=== PATIENT | female | born 1990 | race Caucasian/White ===

== ENCOUNTER 2016-04-14 14:48 | Emergency (ER) | payer OTHER ==
[~2016-04-14 14:48] MED LIST: DOCU100C PO; IBUP60TA PO; PERCOCET PO; VITAPRTA PO
[2016-04-14 17:04] LABS: BASO % 0.5 % (0.0-1.0); EOS # 0.2 K/mm3 (0.0-0.50); EOS % 2.3 % (0.0-3.0); LARGE UNSTAINED CELL # 0.1 K/mm3 (0.0-0.4); LARGE UNSTAINED CELL % 1.6 % (0.0-4.0); LYMPH # 1.7 K/mm3 (1.5-6.5); LYMPH % 21.6 % (24.0-44.0); MEAN CORPUSCULAR HEMOGLOBIN 31.9 pg (27.0-33.0); MEAN CORPUSCULAR HGB CONC 33.1 g/dl (32.0-36.5); MEAN CORPUSCULAR VOLUME 96.4 fl (80.0-96.0); MONO # 0.3 K/mm3 (0.0-0.8); MONO % 3.7 % (0.0-5.0); NEUTROPHILS # 5.4 K/mm3 (1.8-7.7); NEUTROPHILS % 70.3 % (36.0-66.0); PLATELET COUNT, AUTOMATED 239 k/mm3 (150-450); RED CELL DISTRIBUTION WIDTH 12.4 % (11.5-14.5); WHITE BLOOD COUNT 7.7 K/mm3 (4.0-10.0)
[2016-04-14 17:32] LABS: ALBUMIN 4.2 GM/DL (3.2-5.2); ALBUMIN/GLOBULIN RATIO 1.27 (1.00-1.93); ALKALINE PHOSPHATASE 60 U/L (45-117); ALT/SGPT 23 U/L (12-78); ANION GAP 7 MEQ/L (8-16); AST/SGOT 14 U/L (15-37); BILIRUBIN,TOTAL 0.5 MG/DL (0.2-1.0); BLOOD UREA NITROGEN 15 MG/DL (7-18); CALCIUM LEVEL 9.3 MG/DL (8.5-10.1); CARBON DIOXIDE LEVEL 28 MEQ/L (21-32); CHLORIDE LEVEL 105 MEQ/L (98-107); CREATININE FOR GFR 0.76 MG/DL (0.55-1.02); GLOMERULAR FILTRATION RATE > 60.0 (>60); GLUCOSE, FASTING 93 MG/DL (70-105); POTASSIUM SERUM 3.9 MEQ/L (3.5-5.1); SODIUM LEVEL 140 MEQ/L (136-145); TOTAL PROTEIN 7.5 GM/DL (6.4-8.2)
[2016-04-14 17:33] LABS: CONTROL LINE HCG INT CTR LINE PRESENT
[2016-04-14 17:45] LABS: CONTROL LINE INT CTR LINE PRESENT
--- NOTE | 2016-04-14 18:25 | EDDOCDS ---
Physician Documentation [facility] Name: Jennifer Barbosa Age: 25 yrs Sex: Female : 1990 Arrival Date: 04/14/2016 Time: 14:48 Bed PR Private MD: Estaurdo Lincoln A. Disposition: 04/14/16 17:55 Discharged to Home/Self Care. Impression: Contact with contaminated hypodermic needle - ACCIDENTAL NEEDLE STICK INJURY TO LEFT PALM. - Condition is Stable. - Discharge Instructions: Needle Stick Injury. - Work Release Form - 1 day, Medication Reconciliation, Local Pharmacy Hours form. - Follow up: Emergency Department; When: As needed; Reason: Worsening of conditions. Follow up: ; When: Call to arrange an appointment; Reason: Wound/Symptom Recheck, Recheck today's complaints, Continuance of care, To establish care. Follow up: Private Physician; When: 1 - 2 days; Reason: Wound/Symptom Recheck, Recheck today's complaints, Continuance of care. - Problem is new. - Symptoms are unchanged. - Notes: PLEASE CALLEMPLOYEE HEALTHTO FOLLOW UP FROM TODAY'S VISIT. ANY WORSENING SYMPTOMS, PLEASE RETURN TO THE ER. Historical: - Allergies: No known drug Allergies; - Home Meds: 1. Vitamin Oral tab 1 tab once daily - PMHx: preeclampsia; - PSHx: Laparoscopy; (December 18, 2014); - Social history: Smoking status: Patient states was never smoker of tobacco. No barriers to communication noted, The patient speaks fluent Khmer. - Family history: Not pertinent. - : The pt / caregiver states he / she is not on anticoagulants. Home medication list is obtained from the patient, [employer] import data. - Exposure Risk Screening:: None identified. - Tetanus status: less than 5 years. 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 8 in. (172.72 cm); Pain 0/10; 14:49 Body Mass Index 27.37 (81.65 kg, 172.72 cm) cmb MDM: 15:37 Financial registration complete. gjb 15:57 Consult Employee Health (-F, 7:30a-4p) or Nursing Feather Washer for source patient dt4 testing ordered. 15:57 Place PEP packet on chart ordered. dt4 15:58 CBC with Diff Ordered. EDMS 15:58 Complete Comphrensive Metabolic Ordered. EDMS 15:58 HCG,Serum Qualitative Ordered. EDMS 15:58 HIV EXPOSED(ONLY WITH PEP SET) Ordered. EDMS 15:58 Hepatitis B Surface Antibody Ordered. EDMS 15:58 Hepatitis B Surface Antigen Ordered. EDMS 16:03 [facility] [place] [facility] Payment Agreement was scanned into [employer] and attached to record. [email or web address] 16:21 HEPATITIS C ANTIBODY Ordered. EDMS 16:22 Consult Employee [employer] (-, 7:30a-4p) or Nursing Feather Washer for source patient jrd testing complete. Signatures: Dispatcher [employer] EDYolie Uriarte, RN RN kcs Alix Sarabia RN RN rs3 Erin Landers, PA-C PA-C dt4 Behzad Allen, LIBRARY PAGE LIBRARY PAGE jrd Amy Haley gjb Tessie Miner, Reg Reg [email or web address] The chart was reviewed and I authenticate all verbal orders and agree with the evaluation and treatment provided.Corrections: (The following items were deleted from the chart) 16:21 15:59 HEPATITIS C ANTIBODY+LAB ordered. EDMS EDMS Attachments: 16:03 [facility] Payment Agreement [email or web address] MTDD
--- NOTE | 2016-04-14 18:25 | EDDOCDS ---
Nurse's Notes [facility] Name: Jennifer Barbosa Age: 25 yrs Sex: Female : 1990 Arrival Date: 04/14/2016 Time: 14:48 Bed PR Private MD: Estuardo Lincoln A. Diagnosis: Contact with contaminated hypodermic needle-ACCIDENTAL NEEDLE STICK INJURY TO LEFT PALM Presentation: 04/14 14:55 Presenting complaint: Patient states: she was stuck with a dirty needle in the L&D OR - kcs happened at 1308. Struck in palm of left hand. Adult Sepsis Screening: The patient does not have new or worsening altered mentation. Patient's respiratory rate is less than 22. Systolic blood pressure is greater than 100. Patient has a qSOFA score of 0- Negative Sepsis Screen. Suicide/Homicide risk assessment- the patient denies having any suicidal and/or homicidal ideations and does not present with any other emotional, behavioral or mental health complaints. Status: Patient is not a elevator operator service or dependent. Transition of care: patient was not received from another setting of care. 14:55 Acuity: MARQUITA Level 4 kcs 14:55 Method Of Arrival: Walkin/Carried/Asstd kcs Triage Assessment: 14:57 General: Appears comfortable, well developed, well nourished, well groomed, Behavior is kcs cooperative, pleasant. Pain: Denies pain. HIV screening NA for this visit to have serum HIV done. Neurological: Level of Consciousness is awake, alert. Respiratory: Airway is patent Respiratory effort is even, unlabored, Respiratory pattern is regular, symmetrical. Derm: Skin is intact, is healthy with good turgor, Skin is dry, Skin is normal. 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 Vitamin Oral tab 1 tab once daily - PMHx: preeclampsia; - PSHx: Laparoscopy; (December 18, 2014); - Social history: Smoking status: Patient states was never smoker of tobacco. No barriers to communication noted, The patient speaks fluent Bahraini. - Family history: Not pertinent. - : The pt / caregiver states he / she is not on anticoagulants. Home medication list is obtained from the patient, [employer] import data. - Exposure Risk Screening:: None identified. - Tetanus status: less than 5 years. Screenin:20 Screening information is obtained from the patient. Fall risk: No risks identified. rs3 Assistance ADL's: requires no assistance with activities of daily living. Abuse/DV Screen: The patient / caregiver reports he/she is: not in a situation that causes fear, pain or injury. Nutritional screening: No deficits noted. Advance Directives: Currently, there is no health care proxy. home support is adequate. Assessment: 18:20 General: Appears in no apparent distress, Behavior is appropriate for age, cooperative. rs3 Pain: Denies pain. Awake, alert, oriented. Skin warm and dry. Moves all extremities. Bilateral breath sounds clear. Respirations unlabored. Abdomen soft, non-tender. No apparent distress. The patient / caregiver is instructed regarding the plan of care and ED course. Physical assessment to be completed by ROSEMARIE/JACINTO. Injury: 18:22 Injury Description: Needlestick. rs3 Vital Signs: 14:49 BP 132 / 65; Pulse 72; Resp 16; Temp 96.9; Pulse Ox 97% ; Weight 81.65 kg; Height 5 ft. cmb 8 in. (172.72 cm); Pain 0/10; 14:49 Body Mass Index 27.37 (81.65 kg, 172.72 cm) cmb Vitals: 14:49 Log In Time: April 14, 2016 at 14:48. cmb ED Course: 14:49 Patient visited by Diane Stahl. cmb 14:49 Estuardo Lincoln is Private Physician. cmb 14:49 Patient moved to Waiting cmb 14:50 Patient moved to Pre RCE cmb 14:56 Triage Initiated kcs 14:58 Patient moved to Triage 3 kcs 15:26 [facility] dt4 15:26 Andrés Escalante MD is Attending Physician. dt4 15:26 Patient visited by Erin Landers PA-C. dt4 16:00 Patient moved to PR jrd 16:03 [facility] Payment Agreement was scanned into [employer] and attached to record. [email or web address] 16:04 Patient visited by Odilia Johnston RN. mk4 16:35 Patient visited by Odilia Johnston RN. mk4 17:17 Patient visited by Odilia Johnston RN. mk4 17:55 Arash Wu is Referral Physician. dt4 17:55 Referral Physician role handed off by Arash Wu dt4 18:21 No IV's were initiated during this patient's visit. No procedures done that require rs3 assistance. 18:24 Patient has correct armband on for positive identification. rs3 Order Results: Lab Order: CBC with Diff; SPEC'M 04/14/16 16:44 Test: WHITE BLOOD COUNT; Value: 7.7; Range: 4.0-10.0; Units: K/mm3; Status: F Test: RED BLOOD COUNT; Value: 4.00; Range: 4.00-5.40; Units: M/mm3; Status: F Test: HEMOGLOBIN; Value: 12.8; Range: 12.0-16.0; Units: g/dl; Status: F Test: HEMATOCRIT; Value: 38.6; Range: 36.0-47.0; Units: %; Status: F Test: MEAN CORPUSCULAR VOLUME; Value: 96.4; Range: 80.0-96.0; Abnormal: Above high normal; Units: fl; Status: F Test: MEAN CORPUSCULAR HEMOGLOBIN; Value: 31.9; Range: 27.0-33.0; Units: pg; Status: F Test: MEAN CORPUSCULAR HGB CONC; Value: 33.1; Range: 32.0-36.5; Units: g/dl; Status: F Test: RED CELL DISTRIBUTION WIDTH; Value: 12.4; Range: 11.5-14.5; Units: %; Status: F Test: PLATELET COUNT, AUTOMATED; Value: 239; Range: 150-450; Units: k/mm3; Status: F Test: NEUTROPHILS %; Value: 70.3; Range: 36.0-66.0; Abnormal: Above high normal; Units: %; Status: F Test: LYMPH %; Value: 21.6; Range: 24.0-44.0; Abnormal: Below low normal; Units: %; Status: F Test: MONO %; Value: 3.7; Range: 0.0-5.0; Units: %; Status: F Test: EOS %; Value: 2.3; Range: 0.0-3.0; Units: %; Status: F Test: BASO %; Value: 0.5; Range: 0.0-1.0; Units: %; Status: F Test: LARGE UNSTAINED CELL %; Value: 1.6; Range: 0.0-4.0; Units: %; Status: F Test: NEUTROPHILS #; Value: 5.4; Range: 1.8-7.7; Units: K/mm3; Status: F Test: LYMPH #; Value: 1.7; Range: 1.5-6.5; Units: K/mm3; Status: F Test: MONO #; Value: 0.3; Range: 0.0-0.8; Units: K/mm3; Status: F Test: EOS #; Value: 0.2; Range: 0.0-0.50; Units: K/mm3; Status: F Test: BASO #; Value: 0.0; Range: 0.0-0.2; Units: K/mm3; Status: F Test: LARGE UNSTAINED CELL #; Value: 0.1; Range: 0.0-0.4; Units: K/mm3; Status: F Lab Order: Complete Comphrensive Metabolic; SPEC'M 04/14/16 16:44 Test: GLUCOSE, FASTING; Value: 93; Range: 70-105; Units: MG/DL; Status: F Test: BLOOD UREA NITROGEN; Value: 15; Range: 7-18; Units: MG/DL; Status: F Test: CREATININE FOR GFR; Value: 0.76; Range: 0.55-1.02; Units: MG/DL; Status: F Test: GLOMERULAR FILTRATION RATE; Value: > 60.0; Range: >60; Status: F Test: SODIUM LEVEL; Value: 140; Range: 136-145; Units: MEQ/L; Status: F Test: POTASSIUM SERUM; Value: 3.9; Range: 3.5-5.1; Units: MEQ/L; Status: F Test: CHLORIDE LEVEL; Value: 105; Range: 98-107; Units: MEQ/L; Status: F Test: CARBON DIOXIDE LEVEL; Value: 28; Range: 21-32; Units: MEQ/L; Status: F Test: ANION GAP; Value: 7; Range: 8-16; Abnormal: Below low normal; Units: MEQ/L; Status: F Test: CALCIUM LEVEL; Value: 9.3; Range: 8.5-10.1; Units: MG/DL; Status: F Test: AST/SGOT; Value: 14; Range: 15-37; Abnormal: Below low normal; Units: U/L; Status: F Test: ALT/SGPT; Value: 23; Range: 12-78; Units: U/L; Status: F Test: ALKALINE PHOSPHATASE; Value: 60; Range: 45-117; Units: U/L; Status: F Test: BILIRUBIN,TOTAL; Value: 0.5; Range: 0.2-1.0; Units: MG/DL; Status: F Test: TOTAL PROTEIN; Value: 7.5; Range: 6.4-8.2; Units: GM/DL; Status: F Test: ALBUMIN; Value: 4.2; Range: 3.2-5.2; Units: GM/DL; Status: F Test: ALBUMIN/GLOBULIN RATIO; Value: 1.27; Range: 1.00-1.93; Status: F Test Note: ; Units are mL/min/1.73 m2 Chronic Kidney Disease Staging per NKF: Stage I & II GFR >=60 Normal to Mildly Decreased Stage III GFR 30-59 Moderately Decreased Stage IV GFR 15-29 Severely Decreased Stage V GFR <15 Very Little GFR Left ESRD GFR <15 on DIRECTOR FOOD SAFETY Lab Order: HCG,Serum Qualitative; SPEC'M 04/14/16 16:44 Test: HCG, SERUM QUALITATIVE; Value: NEGATIVE; Range: NEGATIVE; Status: F Lab Order: HIV EXPOSED(ONLY WITH PEP SET); SPEC'M 04/14/16 16:44 Test: HIVEXPOSED0; Value: NEGATIVE; Range: NEGATIVE; Status: F Test: HIV EXPOSED PT 1; Value: NEGATIVE; Range: NEGATIVE; Status: F Test Note: ; This test was performed utilizing a immunochromatographic sandwich principle technique. Sensitivity of the assay is 100%. Specificity of the assay is 99.7%. Lab Order: Hepatitis B Surface Antibody; SPEC'M 04/14/16 16:44 Test: HEPATITIS B SURFACE ANTIBODY; Range: POSITIVE; Status: I Lab Order: Hepatitis B Surface Antigen; SPEC' 04/14/16 16:44 Test: HEPATITIS B SURFACE ANTIGEN; Range: NEGATIVE; Status: I Lab Order: HEPATITIS C ANTIBODY; SPEC'M 04/14/16 16:44 Test: HEPATITIS C VIRUS NAEEM INDEX; Range: <0.8; Units: INDEX; Status: I Outcome: 17:55 Discharge ordered by Provider. dt4 18:21 The following High Risk Discharge criteria are identified: None. Discharged to home rs3 ambulatory. Condition: stable. Discharge instructions given to patient, Instructed on discharge instructions, follow up and referral plans. medication usage, Demonstrated understanding of instructions, medications, Pt was receptive of discharge instructions/ teaching. No special radiology studies were completed. 18:21 Discharge Assessment: patient administered narcotics - no. The following High Risk rs3 Discharge criteria are identified: None. Property :Personal belongings accompany Pt. 18:24 Patient left the ED. rs3 Signatures: Yolie Tran, RN RN Alix Mckinley RN RN rs3 Diane Stahl Margaret, RN RN mk4 Erin Landers, PAMarvin PAAmeliaC dt4 Behzad Allen, OUMAR SHOE PULLER jrTessie Patino, Reg Reg ks16 MTDD
[2016-04-15 08:51] LABS: HEPATITIS B SURFACE ANTIBODY POSITIVE (POSITIVE)
--- NOTE | 2016-04-16 19:25 | EDDOCDS ---
Physician Documentation [facility] Name: Jennifer Barbosa Age: 25 yrs Sex: Female : 1990 Arrival Date: 04/14/2016 Time: 14:48 Bed PR Private MD: Estuardo Lincoln A. Disposition: 04/14/16 17:55 Discharged to Home/Self Care. Impression: Contact with contaminated hypodermic needle - ACCIDENTAL NEEDLE STICK INJURY TO LEFT PALM. - Condition is Stable. - Discharge Instructions: Needle Stick Injury. - Work Release Form - 1 day, Medication Reconciliation, Local Pharmacy Hours form. - Follow up: Emergency Department; When: As needed; Reason: Worsening of conditions. Follow up: ; When: Call to arrange an appointment; Reason: Wound/Symptom Recheck, Recheck today's complaints, Continuance of care, To establish care. Follow up: Private Physician; When: 1 - 2 days; Reason: Wound/Symptom Recheck, Recheck today's complaints, Continuance of care. - Problem is new. - Symptoms are unchanged. - Notes: PLEASE CALLEMPLOYEE HEALTHTO FOLLOW UP FROM TODAY'S VISIT. ANY WORSENING SYMPTOMS, PLEASE RETURN TO THE ER. Historical: - Allergies: No known drug Allergies; - Home Meds: 1. Vitamin Oral tab 1 tab once daily - PMHx: preeclampsia; - PSHx: Laparoscopy; (December 18, 2014); - Social history: Smoking status: Patient states was never smoker of tobacco. No barriers to communication noted, The patient speaks fluent Mohawk. - Family history: Not pertinent. - : The pt / caregiver states he / she is not on anticoagulants. Home medication list is obtained from the patient, [employer] import data. - Exposure Risk Screening:: None identified. - Tetanus status: less than 5 years. 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 8 in. (172.72 cm); Pain 0/10; 14:49 Body Mass Index 27.37 (81.65 kg, 172.72 cm) cmb MDM: 15:37 Financial registration complete. gjb 15:57 Consult Employee Health (M-F, 7:30a-4p) or Nursing Faculty Support Coordinator for source patient dt4 testing ordered. 15:57 Place PEP packet on chart ordered. dt4 15:58 CBC with Diff Ordered. EDMS 15:58 Complete Comphrensive Metabolic Ordered. EDMS 15:58 HCG,Serum Qualitative Ordered. EDMS 15:58 HIV EXPOSED(ONLY WITH PEP SET) Ordered. EDMS 15:58 Hepatitis B Surface Antibody Ordered. EDMS 15:58 Hepatitis B Surface Antigen Ordered. EDMS 16:03 [facility] Payment Agreement was scanned into [employer] and attached to record. [email or web address] 16:21 HEPATITIS C ANTIBODY Ordered. EDMS 16:22 Consult Employee Health (M-F, 7:30a-4p) or Nursing Faculty Support Coordinator for source patient jrd testing complete. 04/15 11:05 T-Sheet-- Draft Copy was scanned into [employer] and attached to record. gb 11:05 Other: PEP was scanned into [employer] and attached to record. gb Signatures: Dispatcher [employer] Yolie Hubbard, RN RN Aria Renee, Reg Reg gb Alix Sarabia RN RN rs3 Erin Landers, PA-David PA-C dt4 Behzad Allen, RANGE MANAGEMENT SPECIALIST RANGE MANAGEMENT SPECIALIST Amy Draper gjTessie Long, Reg Reg [email or web address] The chart was reviewed and I authenticate all verbal orders and agree with the evaluation and treatment provided.Corrections: (The following items were deleted from the chart) 04/14 16:21 15:59 HEPATITIS C ANTIBODY+LAB ordered. EDMS EDMS Attachments: 16:03 [facility] [place] Payment Agreement [email or web address] 04/15 11:05 T-Sheet-- Draft Copy gb Chart Complete MTDD
--- NOTE | 2016-04-16 19:25 | EDDOCDS ---
Nurse's Notes [facility] Name: Jennifer Barbosa Age: 25 yrs Sex: Female : 1990 Arrival Date: 04/14/2016 Time: 14:48 Bed PR Private MD: Estuardo Lincoln A. Diagnosis: Contact with contaminated hypodermic needle-ACCIDENTAL NEEDLE STICK INJURY TO LEFT PALM Presentation: 04/14 14:55 Presenting complaint: Patient states: she was stuck with a dirty needle in the L&D OR - kcs happened at 1308. Struck in palm of left hand. Adult Sepsis Screening: The patient does not have new or worsening altered mentation. Patient's respiratory rate is less than 22. Systolic blood pressure is greater than 100. Patient has a qSOFA score of 0- Negative Sepsis Screen. Suicide/Homicide risk assessment- the patient denies having any suicidal and/or homicidal ideations and does not present with any other emotional, behavioral or mental health complaints. 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 Transition of care: patient was not received from another setting of care. 14:55 Acuity: MARQUITA Level 4 kcs 14:55 Method Of Arrival: Walkin/Carried/Asstd kcs Triage Assessment: 14:57 General: Appears comfortable, well developed, well nourished, well groomed, Behavior is kcs cooperative, pleasant. Pain: Denies pain. HIV screening NA for this visit to have serum HIV done. Neurological: Level of Consciousness is awake, alert. Respiratory: Airway is patent Respiratory effort is even, unlabored, Respiratory pattern is regular, symmetrical. Derm: Skin is intact, is healthy with good turgor, Skin is dry, Skin is normal. 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 Vitamin Oral tab 1 tab once daily - PMHx: preeclampsia; - PSHx: Laparoscopy; (December 18, 2014); - Social history: Smoking status: Patient states was never smoker of tobacco. No barriers to communication noted, The patient speaks fluent French. - Family history: Not pertinent. - : The pt / caregiver states he / she is not on anticoagulants. Home medication list is obtained from the patient, [employer] import data. - Exposure Risk Screening:: None identified. - Tetanus status: less than 5 years. Screenin:20 Screening information is obtained from the patient. Fall risk: No risks identified. rs3 Assistance ADL's: requires no assistance with activities of daily living. Abuse/DV Screen: The patient / caregiver reports he/she is: not in a situation that causes fear, pain or injury. Nutritional screening: No deficits noted. Advance Directives: Currently, there is no health care proxy. home support is adequate. Assessment: 18:20 General: Appears in no apparent distress, Behavior is appropriate for age, cooperative. rs3 Pain: Denies pain. Awake, alert, oriented. Skin warm and dry. Moves all extremities. Bilateral breath sounds clear. Respirations unlabored. Abdomen soft, non-tender. No apparent distress. The patient / caregiver is instructed regarding the plan of care and ED course. Physical assessment to be completed by ROSEMARIE/JACINTO. Injury: 18:22 Injury Description: Needlestick. rs3 Vital Signs: 14:49 BP 132 / 65; Pulse 72; Resp 16; Temp 96.9; Pulse Ox 97% ; Weight 81.65 kg; Height 5 ft. cmb 8 in. (172.72 cm); Pain 0/10; 14:49 Body Mass Index 27.37 (81.65 kg, 172.72 cm) cmb Vitals: 14:49 Log In Time: April 14, 2016 at 14:48. cmb ED Course: 14:49 Patient visited by Diane Stahl. cmb 14:49 Estuardo Lincoln is Private Physician. cmb 14:49 Patient moved to Waiting cmb 14:50 Patient moved to Pre RCE cmb 14:56 Triage Initiated kcs 14:58 Patient moved to Triage 3 kcs 15:26 [facility]. dt4 15:26 Andrés Escalante MD is Attending Physician. dt4 15:26 Patient visited by Erin Landers PA-C. dt4 16:00 Patient moved to PR jrd 16:03 [facility] Payment Agreement was scanned into [employer] and attached to record. ks16 16:04 Patient visited by Odilia Johnston RN. mk4 16:35 Patient visited by Odilia Johnston RN. mk4 17:17 Patient visited by Odilia Johnston RN. mk4 17:55 Arash Wu is Referral Physician. dt4 17:55 Referral Physician role handed off by Arash Wu dt4 18:21 No IV's were initiated during this patient's visit. No procedures done that require rs3 assistance. 18:24 Patient has correct armband on for positive identification. rs3 04/15 11:05 T-Sheet-- Draft Copy was scanned into [employer]cer and attached to record. gb 11:05 Other: PEP was scanned into [employer] and attached to record. gb Order Results: Lab Order: CBC with Diff; SPEC'M 04/14/16 16:44 Test: WHITE BLOOD COUNT; Value: 7.7; Range: 4.0-10.0; Units: K/mm3; Status: F Test: RED BLOOD COUNT; Value: 4.00; Range: 4.00-5.40; Units: M/mm3; Status: F Test: HEMOGLOBIN; Value: 12.8; Range: 12.0-16.0; Units: g/dl; Status: F Test: HEMATOCRIT; Value: 38.6; Range: 36.0-47.0; Units: %; Status: F Test: MEAN CORPUSCULAR VOLUME; Value: 96.4; Range: 80.0-96.0; Abnormal: Above high normal; Units: fl; Status: F Test: MEAN CORPUSCULAR HEMOGLOBIN; Value: 31.9; Range: 27.0-33.0; Units: pg; Status: F Test: MEAN CORPUSCULAR HGB CONC; Value: 33.1; Range: 32.0-36.5; Units: g/dl; Status: F Test: RED CELL DISTRIBUTION WIDTH; Value: 12.4; Range: 11.5-14.5; Units: %; Status: F Test: PLATELET COUNT, AUTOMATED; Value: 239; Range: 150-450; Units: k/mm3; Status: F Test: NEUTROPHILS %; Value: 70.3; Range: 36.0-66.0; Abnormal: Above high normal; Units: %; Status: F Test: LYMPH %; Value: 21.6; Range: 24.0-44.0; Abnormal: Below low normal; Units: %; Status: F Test: MONO %; Value: 3.7; Range: 0.0-5.0; Units: %; Status: F Test: EOS %; Value: 2.3; Range: 0.0-3.0; Units: %; Status: F Test: BASO %; Value: 0.5; Range: 0.0-1.0; Units: %; Status: F Test: LARGE UNSTAINED CELL %; Value: 1.6; Range: 0.0-4.0; Units: %; Status: F Test: NEUTROPHILS #; Value: 5.4; Range: 1.8-7.7; Units: K/mm3; Status: F Test: LYMPH #; Value: 1.7; Range: 1.5-6.5; Units: K/mm3; Status: F Test: MONO #; Value: 0.3; Range: 0.0-0.8; Units: K/mm3; Status: F Test: EOS #; Value: 0.2; Range: 0.0-0.50; Units: K/mm3; Status: F Test: BASO #; Value: 0.0; Range: 0.0-0.2; Units: K/mm3; Status: F Test: LARGE UNSTAINED CELL #; Value: 0.1; Range: 0.0-0.4; Units: K/mm3; Status: F Lab Order: Complete Comphrensive Metabolic; SPEC'M 04/14/16 16:44 Test: GLUCOSE, FASTING; Value: 93; Range: 70-105; Units: MG/DL; Status: F Test: BLOOD UREA NITROGEN; Value: 15; Range: 7-18; Units: MG/DL; Status: F Test: CREATININE FOR GFR; Value: 0.76; Range: 0.55-1.02; Units: MG/DL; Status: F Test: GLOMERULAR FILTRATION RATE; Value: > 60.0; Range: >60; Status: F Test: SODIUM LEVEL; Value: 140; Range: 136-145; Units: MEQ/L; Status: F Test: POTASSIUM SERUM; Value: 3.9; Range: 3.5-5.1; Units: MEQ/L; Status: F Test: CHLORIDE LEVEL; Value: 105; Range: 98-107; Units: MEQ/L; Status: F Test: CARBON DIOXIDE LEVEL; Value: 28; Range: 21-32; Units: MEQ/L; Status: F Test: ANION GAP; Value: 7; Range: 8-16; Abnormal: Below low normal; Units: MEQ/L; Status: F Test: CALCIUM LEVEL; Value: 9.3; Range: 8.5-10.1; Units: MG/DL; Status: F Test: AST/SGOT; Value: 14; Range: 15-37; Abnormal: Below low normal; Units: U/L; Status: F Test: ALT/SGPT; Value: 23; Range: 12-78; Units: U/L; Status: F Test: ALKALINE PHOSPHATASE; Value: 60; Range: 45-117; Units: U/L; Status: F Test: BILIRUBIN,TOTAL; Value: 0.5; Range: 0.2-1.0; Units: MG/DL; Status: F Test: TOTAL PROTEIN; Value: 7.5; Range: 6.4-8.2; Units: GM/DL; Status: F Test: ALBUMIN; Value: 4.2; Range: 3.2-5.2; Units: GM/DL; Status: F Test: ALBUMIN/GLOBULIN RATIO; Value: 1.27; Range: 1.00-1.93; Status: F Test Note: ; Units are mL/min/1.73 m2 Chronic Kidney Disease Staging per NKF: Stage I & II GFR >=60 Normal to Mildly Decreased Stage III GFR 30-59 Moderately Decreased Stage IV GFR 15-29 Severely Decreased Stage V GFR <15 Very Little GFR Left ESRD GFR <15 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 Sensitivity of the assay is 100%. Specificity of the assay is 99.7%. Lab Order: Hepatitis B Surface Antibody; SPEC'M 04/14/16 16:44 Test: HEPATITIS B SURFACE ANTIBODY; Value: POSITIVE; Range: POSITIVE; Status: F Lab Order: Hepatitis B Surface Antigen; SPEC'M 04/14/16 16:44 Test: HEPATITIS B SURFACE ANTIGEN; Value: NEGATIVE; Range: NEGATIVE; Status: F Lab Order: HEPATITIS C ANTIBODY; SPEC'M 04/14/16 16:44 Test: HEPATITIS C VIRUS NAEEM INDEX; Value: < 0.0; Range: <0.8; Units: INDEX; Status: F Outcome: 04/14 17:55 Discharge ordered by Provider. dt4 18:21 The following High Risk Discharge criteria are identified: None. Discharged to home rs3 ambulatory. Condition: stable. Discharge instructions given to patient, Instructed on discharge instructions, follow up and referral plans. medication usage, Demonstrated understanding of instructions, medications, Pt was receptive of discharge instructions/ teaching. No special radiology studies were completed. 18:21 Discharge Assessment: patient administered narcotics - no. The following High Risk rs3 Discharge criteria are identified: None. Property :Personal belongings accompany Pt. 18:24 Patient left the ED. rs3 Signatures: Yolie Tran, RN RN [facility] Aria Lazar, Reg Reg gb Alix Sarabia RN RN rs3 Diane Stahl Margaret RN RN mk4 Erin Landers PA-C PA-C dt4 Behzad Allen, OUMAR FISHERY BIOLOGIST Tessie Beebe, Reg Reg ks16 Chart Complete MTDD
--- NOTE | 2016-04-16 19:25 | EDDOCDS ---
Physician Documentation [facility] Name: Jennifer Barbosa Age: 25 yrs Sex: Female : 1990 Arrival Date: 04/14/2016 Time: 14:48 Bed PR Private MD: Estuardo Lincoln A. Disposition: 04/14/16 17:55 Discharged to Home/Self Care. Impression: Contact with contaminated hypodermic needle - ACCIDENTAL NEEDLE STICK INJURY TO LEFT PALM. - Condition is Stable. - Discharge Instructions: Needle Stick Injury. - Work Release Form - 1 day, Medication Reconciliation, Local Pharmacy Hours form. - Follow up: Emergency Department; When: As needed; Reason: Worsening of conditions. Follow up: ; When: Call to arrange an appointment; Reason: Wound/Symptom Recheck, Recheck today's complaints, Continuance of care, To establish care. Follow up: Private Physician; When: 1 - 2 days; Reason: Wound/Symptom Recheck, Recheck today's complaints, Continuance of care. - Problem is new. - Symptoms are unchanged. - Notes: [facility]'S [facility]IS[facility]. ANY WORSENING SYMPTOMS, PLEASE RETURN TO THE ER. Historical: - Allergies: No known drug Allergies; - Home Meds: 1. Vitamin Oral tab 1 tab once daily - PMHx: preeclampsia; - PSHx: Laparoscopy; (December 18, 2014); - Social history: Smoking status: Patient states was never smoker of tobacco. No barriers to communication noted, The patient speaks fluent Polish. - Family history: Not pertinent. - : The pt / caregiver states he / she is not on anticoagulants. Home medication list is obtained from the patient, [employer] import data. - Exposure Risk Screening:: None identified. - Tetanus status: less than 5 years. 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 8 in. (172.72 cm); Pain 0/10; 14:49 Body Mass Index 27.37 (81.65 kg, 172.72 cm) cmb MDM: 15:37 Financial registration complete. gjb 15:57 Consult Employee Health (M-F, 7:30a-4p) or Nursing Insulation Worker Apprentice for source patient dt4 testing ordered. 15:57 Place PEP packet on chart ordered. dt4 15:58 CBC with Diff Ordered. EDMS 15:58 Complete Comphrensive Metabolic Ordered. EDMS 15:58 HCG,Serum Qualitative Ordered. EDMS 15:58 HIV EXPOSED(ONLY WITH PEP SET) Ordered. EDMS 15:58 Hepatitis B Surface Antibody Ordered. EDMS 15:58 Hepatitis B Surface Antigen Ordered. EDMS 16:03 [facility] Payment Agreement was scanned into [employer] and attached to record. ks16 16:21 HEPATITIS C ANTIBODY Ordered. EDMS 16:22 Consult Employee Health (M-F, 7:30a-4p) or Nursing Insulation Worker Apprentice for source patient jrd testing complete. 04/15 11:05 T-Sheet-- Draft Copy was scanned into [employer] and attached to record. gb 11:05 Other: PEP was scanned into [employer] and attached to record. gb Signatures: Dispatcher [employer] Yolie Hubbard, RN RN Aria Renee, Reg Reg gb Alix Sarabia RN RN rs3 Erin Landers, PA-David PA-C dt4 Behzad Allen, PIPE FITTER GAS PIPE PIPE FITTER GAS PIPE Amy Draper gjTessie Long, Reg Reg ks16 The chart was reviewed and I authenticate all verbal orders and agree with the evaluation and treatment provided.Corrections: (The following items were deleted from the chart) 04/14 16:21 15:59 HEPATITIS C ANTIBODY+LAB ordered. EDMS EDMS Attachments: 16:03 [facility] Payment Agreement [email or web address] 04/15 11:05 T-Sheet-- Draft Copy gb Chart Complete MTDD
== END 2016-04-14 18:24 | disposition home or self-care (01) ==
LOC: M ED 14:48
DX: Z77.21 Contact with and (suspected) exposure to potentially hazardous body fluids (principal); W46.1XXA Contact with contaminated hypodermic needle, initial encounter; Y92.234 Operating room of hospital as the place of occurrence of the external cause; Y93.89 Activity, other specified; Y99.0 Civilian activity done for income or pay

== ENCOUNTER → 2016-08-12 | Outpatient (CLI) | payer OTHER | LOC: M LAB 14:25 | PROVIDERS: ATTEND Advanced Practice Midwife | DX: O20.0 Threatened abortion (principal) ==

== ENCOUNTER → 2016-08-14 | Outpatient (CLI) | payer OTHER | LOC: M LAB 14:38 | PROVIDERS: ATTEND Advanced Practice Midwife | DX: O20.0 Threatened abortion (principal) ==

== ENCOUNTER → 2016-08-21 | Outpatient (CLI) | payer OTHER | LOC: M LAB 13:02 | PROVIDERS: ATTEND Advanced Practice Midwife | DX: O20.0 Threatened abortion (principal) ==

== ENCOUNTER → 2016-09-16 | Outpatient (CLI) | payer OTHER ==
[2016-09-16 13:04] LABS: BASO % 0.4 % (0.0-1.0); EOS # 0.2 K/mm3 (0.0-0.50); EOS % 1.6 % (0.0-3.0); LARGE UNSTAINED CELL # 0.1 K/mm3 (0.0-0.4); LARGE UNSTAINED CELL % 0.7 % (0.0-4.0); LYMPH # 1.4 K/mm3 (1.5-6.5); LYMPH % 14.2 % (24.0-44.0); MEAN CORPUSCULAR HEMOGLOBIN 32.9 pg (27.0-33.0); MEAN CORPUSCULAR HGB CONC 33.8 g/dl (32.0-36.5); MEAN CORPUSCULAR VOLUME 97.4 fl (80.0-96.0); MONO # 0.3 K/mm3 (0.0-0.8); MONO % 3.5 % (0.0-5.0); NEUTROPHILS # 7.8 K/mm3 (1.8-7.7); NEUTROPHILS % 79.8 % (36.0-66.0); PLATELET COUNT, AUTOMATED 218 k/mm3 (150-450); RED CELL DISTRIBUTION WIDTH 12.4 % (11.5-14.5); WHITE BLOOD COUNT 9.7 K/mm3 (4.0-10.0)
[2016-09-16 13:41] LABS: HBsAg Prenatal NEGATIVE (NEGATIVE)
== END ==
LOC: M SMT 09:57
PROVIDERS: ATTEND Advanced Practice Midwife
DX: Z36 Encounter for antenatal screening of mother (principal)

== ENCOUNTER → 2016-09-21 | Outpatient (CLI) | payer OTHER ==
[2016-09-21 14:20] LABS: MEAN CORPUSCULAR HEMOGLOBIN 33.1 pg (27.0-33.0); MEAN CORPUSCULAR HGB CONC 34.1 g/dl (32.0-36.5); RED CELL DISTRIBUTION WIDTH 12.4 % (11.5-14.5); WHITE BLOOD COUNT 9.6 K/mm3 (4.0-10.0)
[2016-09-21 14:49] LABS: ALBUMIN 3.7 GM/DL (3.2-5.2); ALBUMIN/GLOBULIN RATIO 1.06 (1.00-1.93); ALKALINE PHOSPHATASE 56 U/L (45-117); ALT/SGPT 14 U/L (12-78); ANION GAP 7 MEQ/L (8-16); AST/SGOT 11 U/L (15-37); BILIRUBIN,TOTAL 0.3 MG/DL (0.2-1.0); BLOOD UREA NITROGEN 8 MG/DL (7-18); CALCIUM LEVEL 8.7 MG/DL (8.5-10.1); CARBON DIOXIDE LEVEL 26 MEQ/L (21-32); CHLORIDE LEVEL 105 MEQ/L (98-107); CREATININE FOR GFR 0.51 MG/DL (0.55-1.02); GLOMERULAR FILTRATION RATE > 60.0 (>60); GLUCOSE, FASTING 74 MG/DL (70-105); POTASSIUM SERUM 3.7 MEQ/L (3.5-5.1); SODIUM LEVEL 138 MEQ/L (136-145); TOTAL PROTEIN 7.2 GM/DL (6.4-8.2); URIC ACID 2.7 MG/DL (2.6-6.0)
[2016-09-21 15:37] LABS: CREATININE CLEARANCE, URINE 202.7 ML/MIN (75-115); CREATININE, SERUM 0.5 MG/DL (0.6-1.0)
== END ==
LOC: M SMT 13:10
PROVIDERS: ATTEND Advanced Practice Midwife
DX: O34.211 Maternal care for low transverse scar from previous cesarean delivery (principal)

== ENCOUNTER → 2016-11-16 | Outpatient (CLI) | payer OTHER ==
[~2016-11-16] MED LIST changes: -DOCU100C PO; +DOCU100C16 PO
--- NOTE | 2016-11-16 13:43 | REP ---
Obstetric ultrasound for anatomy: There is a single intrauterine gestation in a breech presentation. There is motion and cardiac activity. The heart rate is 141 beats per minute. The placenta is anterior and extends into the lower uterine segment across the internal cervical os indicating a direct placenta previa. 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 The patient reportedly has had uterine surgery. With endovaginal imaging, there appears to be vasa previa as well as placenta previa. Trans vaginally the cervix on the right measures 4.5 cm in length and the cervix on the left measures 3.7 cm length. Several venous lakes are noted in the of placenta. Subjectively the amniotic fluid volume is normal. The maternal adnexa and normal cul-de-sac are unremarkable. By the ultrasound today gestational age is 18 weeks 4 days with an ELAINE of 04/15/2017. By LMP gestational age is 18 weeks 1 day. weight is 252 grams (0 pounds, 8 ounces). This is the 52nd percentile for 18 weeks 4 days and 70th percentile for 18 weeks 1 day. The following anatomic structures are identified and are unremarkable: Cranium, choroid plexus, cavum septum pellucidum, cerebellum, facial profile, lungs, four-chamber heart, cardiac right and left ventricular outflow tracts, diaphragm, stomach, cord insertion, three-vessel cord, kidneys, bladder and upper lower extremities. The spine cannot be optimally demonstrated because of position. A followup study dedicated to the spine might be considered. Otherwise, there are no anomalies. Impression: Placenta previa and vasa previa. There are two cervixes. The patient has history of uterine surgery. Signed by Lawrence Galarza MD 11/16/2016 01:35 P
== END ==
LOC: M SMT 10:59
PROVIDERS: ATTEND Advanced Practice Midwife
DX: Z36 Encounter for antenatal screening of mother (principal); O32.1XX1 Maternal care for breech presentation, fetus 1; Z3A.18 18 weeks gestation of pregnancy

== ENCOUNTER → 2017-02-16 | Outpatient (CLI) | payer OTHER ==
--- NOTE | 2017-02-16 14:13 | REP ---
Clinical: Growth evaluation. Comparison: None . Findings: Examination demonstrates a single live intrauterine in transverse (head towards maternal left) presentation. motion is identified by technologist. Placenta is noted anteriorly and grade one without evidence for placenta previa or abruption. Amniotic fluid volume is normal. Cervix measures 3.9 cm in length and appears closed. No evidence for nuchal cord. Gestational age by LMP 31 weeks 2 days with ELAINE 04/18/2017 . Gestational age by current measurements 31 weeks 5 days with ELAINE 04/15/2017 . FHR equals 147 beats per minute. BPD 8.0 cm 32 weeks 2 days HC 29.4 cm 32 weeks 3 days AC 29.3 cm 33 weeks 2 days FL 6.0 cm 31 weeks 3 days HL 5.6 cm 32 weeks 2 days HC/AC ratio 1.01 Estimated weight 1994 grams ( 69th percentile). Amniotic fluid index equals 11.2 cm (8.7 - 23.9). Umbilical cord SD ratio equals 3.33 (2.50 - 3.5). Impression: Single live advanced gestation in transverse lie demonstrating appropriate interval growth. No gross abnormalities are identified. Signed by Efra Rivera MD 02/16/2017 02:05 P
== END ==
LOC: M SMT 13:03
PROVIDERS: ATTEND Advanced Practice Midwife
DX: O34.211 Maternal care for low transverse scar from previous cesarean delivery (principal); O34.00 Maternal care for unspecified congenital malformation of uterus, unspecified trimester

== ENCOUNTER → 2017-03-09 | Outpatient (CLI) | payer OTHER ==
--- NOTE | 2017-03-09 21:25 | REP ---
LIMITED OBSTETRICAL ULTRASOUND: CLINICAL: Growth evaluation. History of bicornuate uterus. COMPARISON: 02/16/2017 FINDINGS: Ultrasound examination demonstrates a single live advanced gestation in cephalic presentation. motion was identified by technologist. Placenta is noted anteriorly and grade 1 without evidence for placenta previa or abruption. Amniotic fluid volume is within normal limits. No evidence for nuchal cord. Gestational age by LMP 34 weeks 2 days with estimated date of delivery 04/18/2017. Gestational age by current measurements 34 weeks 6 days with estimated date of delivery 04/14/2017. FHR 141 beats per minute. BPD 8.8 cm = 35 weeks 3 days HC 32.3 cm = 36 weeks 3 days AC 31.8 cm = 35 weeks 5 days FL 6.6 cm = 34 weeks 1 day HC/AC ratio 1.01. Estimated weight 2658 grams, 67th percentile. Amniotic fluid index equals 11.7 cm (8.0 - 24.8). Umbilical cord S/D ratio equals 2.87 (2.00 - 3.00). IMPRESSION: Single live advanced gestation in cephalic presentation demonstrating appropriate interval growth. Amniotic fluid volume is within normal limits. Signed by Efra Rivera MD 03/10/2017 07:29 A
== END ==
LOC: M SMT 14:02
PROVIDERS: ATTEND Advanced Practice Midwife
DX: Z36.2 Encounter for other antenatal screening follow-up (principal)

== ENCOUNTER → 2017-03-22 | Outpatient (REF) | payer OTHER | LOC: M LAB REF 17:48 | PROVIDERS: ATTEND Obstetrics & Gynecology | DX: Z34.83 Encounter for supervision of other normal pregnancy, third trimester (principal) ==

== ENCOUNTER → 2017-03-28 | Outpatient (CLI) | payer OTHER ==
--- NOTE | 2017-03-28 12:26 | REP ---
Clinical: Growth evaluation. Comparison: 03/09/2017 . Findings: Examination demonstrates a single live intrauterine in transverse (head to maternal right) presentation. motion is identified by technologist. Placenta is noted anteriorly and grade one without evidence for placenta previa or abruption. Amniotic fluid volume is normal. Cervix appears closed. No evidence for nuchal cord. Gestational age by LMP 7 minutes 37 weeks 0 days with ELAINE 04/18/2017 . Gestational age by current measurements 36 weeks 6 days with ELAINE 04/19/2017 . FHR equals 128 beats per minute. BPD 9.1 cm 36 weeks 6 days HC 33.6 cm 38 weeks 4 days AC 33.4 cm 37 weeks 2 days FL 7.1 cm 36 week 3 days HC/AC ratio 1.01 Estimated weight 3145 grams ( 57th percentile). Amniotic fluid index: 10.1 cm (7.5 - 24.4). Umbilical cord SD ratio: 2.50 (1.60 - 2.60). Impression: Single live advanced gestation in transverse lie demonstrating appropriate interval growth. No gross abnormalities are identified. Amniotic fluid volume is within normal limits. Estimated weight normal. Signed by Efra Rivera MD 03/28/2017 12:18 P
== END ==
LOC: M SMT 11:11
PROVIDERS: ATTEND Advanced Practice Midwife
DX: O34.211 Maternal care for low transverse scar from previous cesarean delivery (principal); O34.00 Maternal care for unspecified congenital malformation of uterus, unspecified trimester; Z3A.36 36 weeks gestation of pregnancy

== ENCOUNTER → 2019-01-14 | Outpatient (CLI) | payer OTHER ==
[~2019-01-14] MED LIST changes: +COLA100C5 PO; +IBUP-1114 PO; +IBUP600T42 PO; -IBUP60TA PO; +OXYC1TAB23 PO; +SIME80TA PO
== END ==
LOC: M SMT 07:52
PROVIDERS: ATTEND Advanced Practice Midwife
DX: O20.0 Threatened abortion (principal); Z3A.00 Weeks of gestation of pregnancy not specified

== ENCOUNTER → 2019-01-16 | Outpatient (CLI) | payer OTHER | LOC: M LAB 14:26 | PROVIDERS: ATTEND Advanced Practice Midwife | DX: O20.0 Threatened abortion (principal); Z3A.00 Weeks of gestation of pregnancy not specified ==

== ENCOUNTER → 2019-01-25 | Outpatient (REF) | payer OTHER | LOC: M LAB REF 17:41 | PROVIDERS: ATTEND Advanced Practice Midwife | DX: Z12.4 Encounter for screening for malignant neoplasm of cervix (principal) ==

== ENCOUNTER → 2019-02-11 | Outpatient (REF) | payer OTHER ==
[2019-02-11 15:51] LABS: BASO # 0.1 10^3/uL (0.0-0.2); BASO % 0.7 % (0.0-1.0); EOS # 0.2 10^3/uL (0.0-0.5); EOS % 1.8 % (0.0-3.0); HEMOGLOBIN 10.9 g/dl (12.0-15.5); LYMPH # 1.3 10^3/uL (1.5-5.0); LYMPH % 15.1 % (24.0-44.0); MEAN CORPUSCULAR HEMOGLOBIN 26.1 pg (27.0-33.0); MEAN CORPUSCULAR HGB CONC 30.3 g/dl (32.0-36.5); MEAN CORPUSCULAR VOLUME 86.1 fl (80.0-96.0); MONO # 0.5 10^3/uL (0.0-0.8); MONO % 5.3 % (0.0-5.0); NEUTROPHILS # 6.5 10^3/uL (1.5-8.5); NEUTROPHILS % 76.6 % (36.0-66.0); PLATELET COUNT, AUTOMATED 254 10^3/uL (150-450); RED BLOOD COUNT 4.18 10^6/uL (4.00-5.40); WHITE BLOOD COUNT 8.5 10^3/uL (4.0-10.0)
[2019-02-11 15:58] LABS: ALT/SGPT 16 U/L (12-78); BILIRUBIN,TOTAL 0.6 MG/DL (0.2-1.0); CREATININE FOR GFR 0.62 MG/DL (0.55-1.30); GLOMERULAR FILTRATION RATE > 60.0 (>60); LDH LACTATE DEHYDROGENASE 134 U/L (84-246); URIC ACID 2.6 MG/DL (2.6-6.0)
[2019-02-11 16:20] LABS: TOTAL PROTEIN,RANDOM URINE 14.6 MG/DL (0.0-12.0)
[2019-02-11 17:39] LABS: CHLAMYDIA DNA AMPLIFICATION NEGATIVE (NEGATIVE); GC DNA AMPLIFICATION NEGATIVE (NEGATIVE)
[2019-02-11 19:50] LABS: RUBELLA IgG QUALITATIVE IMMUNE (IMMUNE)
[2019-02-13 12:15] LABS: HIV 1&2 SCREEN CENTAUR NEGATIVE (NEGATIVE)
== END ==
LOC: M LABDRAW1 11:55
PROVIDERS: ATTEND Advanced Practice Midwife
DX: Z34.81 Encounter for supervision of other normal pregnancy, first trimester (principal); Z3A.00 Weeks of gestation of pregnancy not specified

== ENCOUNTER 2019-03-14 14:53 | Day surgery (SDC) | payer OTHER ==
[~2019-03-14] VITALS: Ht 172.7 cm; Wt 80.3 kg
[2019-03-14] MEDS: LR 1,000 ML IV SCH ×2 (06:28→23:58)
[2019-03-14] MEDS ORDERED: FERR32TA PO (15:07)
[2019-03-14 15:27] LABS: BASO # 0.1 10^3/uL (0.0-0.2); BASO % 0.5 % (0.0-1.0); EOS # 0.2 10^3/uL (0.0-0.5); EOS % 1.4 % (0.0-3.0); HEMATOCRIT 36.9 % (36.0-47.0); HEMOGLOBIN 11.5 g/dl (12.0-15.5); LYMPH # 1.2 10^3/uL (1.5-5.0); LYMPH % 10.4 % (24.0-44.0); MEAN CORPUSCULAR HEMOGLOBIN 28.3 pg (27.0-33.0); MEAN CORPUSCULAR HGB CONC 31.2 g/dl (32.0-36.5); MEAN CORPUSCULAR VOLUME 90.7 fl (80.0-96.0); MONO # 0.6 10^3/uL (0.0-0.8); MONO % 4.9 % (0.0-5.0); NEUTROPHILS # 9.5 10^3/uL (1.5-8.5); PLATELET COUNT, AUTOMATED 210 10^3/uL (150-450); RED BLOOD COUNT 4.07 10^6/uL (4.00-5.40); WHITE BLOOD COUNT 11.5 10^3/uL (4.0-10.0)
[2019-03-14 16:13] LABS: ALBUMIN 3.3 GM/DL (3.2-5.2); ALT/SGPT 14 U/L (12-78); BILIRUBIN,DIRECT 0.1 MG/DL (0.0-0.2); BILIRUBIN,TOTAL 0.3 MG/DL (0.2-1.0); BLOOD UREA NITROGEN 5 MG/DL (7-18); CARBON DIOXIDE LEVEL 24 MEQ/L (21-32); CHLORIDE LEVEL 106 MEQ/L (98-107); CREATININE FOR GFR 0.53 MG/DL (0.55-1.30); GLOMERULAR FILTRATION RATE > 60.0 (>60); GLUCOSE, FASTING 71 MG/DL (70-100); HCG, SERUM QUANTITATIVE 44721 MIU/ML; LIPASE 118 U/L (73-393); POTASSIUM SERUM 3.5 MEQ/L (3.5-5.1); SODIUM LEVEL 141 MEQ/L (136-145)
[2019-03-14] MEDS ORDERED: ACETAMINOPHEN 500 MG TAB PO ONE (17:30)
--- NOTE | 2019-03-14 17:52 | REP ---
REASON: Pelvic pain. Multiple ultrasonographic images of the gravid uterus show a single living intrauterine gestation in variable position. Doppler interrogation of the heart shows a heart rate of 158 beats per minute. The placenta is fundal and not low lying. The subjective aminotic fluid volume is within normal limits. Evaluation of the maternal adnexal spaces showed a complex cystic structure arising from the right ovary measuring 2.7 x 1.9 x 2.6 cm. IMPRESSION:Early OB ultrasound as described above. The examination was ordered and performed in a limited fashion. There is a complex cyst in the right ovary as described above possibly representing a hemorrhagic corpus luteum cyst. This should be correlated clinically with appropriate followup. Electronically Signed by Trenton Powell DO 03/14/2019 05:56 P
--- NOTE | 2019-03-14 19:35 | REPVR ---
PROCEDURE INFORMATION: Exam: MR Abdomen Without Contrast Exam date and time: 03/14/2019 5:29 PM Age: 28 years old Clinical history: Abdominal pain; Localized; Right lower quadrant (rlq); Patient HX: 14 wks , R/O appendicitis; Additional info: Rlq pain, RO appendicitis TECHNIQUE: Imaging protocol: MR of the abdomen without contrast. COMPARISON: No relevant prior studies available. FINDINGS: Liver: No mass. Gallbladder and bile ducts: Unremarkable. No stones. No ductal dilation. Pancreas: Unremarkable. No ductal dilation. Spleen: Unremarkable. No splenomegaly. Adrenals: Unremarkable. No mass. Kidneys and ureters: Unremarkable. No solid mass. No hydronephrosis. Stomach and bowel: Unremarkable. Appendix: The appendix demonstrates diffuse distention measuring 7.5-8 mm associated with small amount of fluid in the right lower quadrant periappendiceal region,, findings consistent with acute appendicitis although secondary considerations would include rupture versus in the nearby right ovary which is somewhat laterally displaced. No abscess demonstrated. Intraperitoneal space: See Appendix Finding. Arteries: No abdominal aortic aneurysm. Reproductive: Note is made of a gravid uterus. Several follicles demonstrated in the right ovary. Bones/joints: Unremarkable. Soft tissues: Unremarkable. IMPRESSION: Findings favoring acute appendicitis although ruptured ovarian right cysts could produce similar findings. Electronically signed by: Sina Hedrick On 03/14/2019 19:34:26 PM
[2019-03-14] MEDS ORDERED: NS 1,000 ML IV ONE ×2 (20:15→22:45)
[2019-03-14] MEDS ORDERED: PIPERACILLIN/TAZOBACTAM SOD 3.375 GM in D5W MINI-BAG PLUS 50 ML IV ONE (20:45)
[2019-03-14] MEDS ORDERED: PREN1TAB15 PO (21:30)
[2019-03-15] VITALS (7 sets, daily range): BP systolic 105–121; BP diastolic 49–67
[2019-03-15] MEDS ORDERED: KETOROLAC 60 MG/2 ML VIAL (J1885) As Ordered ONE (00:31)
[2019-03-15] MEDS ORDERED: dexameTHASONE 4 MG/ML 1ML VIAL (J1100) As Ordered ONE (00:31)
[2019-03-15] MEDS ORDERED: ONDANSETRON 4MG/2ML VIAL (J2405) As Ordered ONE (00:31)
[2019-03-15] MEDS ORDERED: fentaNYL 250 MCG/5 ML INJECTION (J3010) As Ordered ONE (00:31)
[2019-03-15] MEDS ORDERED: LIDOCAINE 2% INJ 100 MG/5 ML SDV (FOR ANES.) As Ordered ONE (00:31)
[2019-03-15] MEDS ORDERED: SUGAMMADEX SODIUM 500 MG/5 ML VIAL (BRIDION) As Ordered ONE (00:31)
[2019-03-15] MEDS ORDERED: ROCURONIUM BROMIDE 50 MG/5 ML VIAL As Ordered ONE (00:31)
[2019-03-15] MEDS ORDERED: PROPOFOL 200 MG/20 ML VIAL As Ordered ONE (00:31)
[2019-03-15] MEDS ORDERED: ACETAMINOPHEN 1000MG 100ML IV BTL (OFIRMEV) (J0131 PER 10MG) As Ordered ONE (01:33)
[2019-03-15] MEDS ORDERED: BUPIVACAINE HCL 0.25% 30 ML VIAL As Ordered ONE (01:40)
[2019-03-15] MEDS ORDERED: METOCLOPRAMIDE INJ 10MG/2ML VIAL (J2765) IV PRN (02:00)
[2019-03-15] MEDS ORDERED: oxyCODONE 5MG TAB PO PRN (02:00)
[2019-03-15] MEDS ORDERED: LR 1,000 ML IV SCH (02:00)
[2019-03-15] MEDS ORDERED: MEPERIDINE INJ 25 MG/ML VIAL (J2175) IV PRN (02:00)
[2019-03-15] MEDS ORDERED: ONDANSETRON 4MG/2ML VIAL (J2405) IV PRN (02:00)
[2019-03-15] MEDS ORDERED: fentaNYL 100 MCG/2 ML INJECTION (J3010) IV PRN (02:00)
[2019-03-15] MEDS ORDERED: NORCO, ANEXSIA 5/325MG TABLET (HYDROcodone/ACETAMINOPHEN) PO PRN (02:45)
[2019-03-15] MEDS ORDERED: MORPHINE 2 MG/ML 1ML VIAL (J2270) IV PRN (02:45)
[2019-03-15] MEDS ORDERED: PIPERACILLIN/TAZOBACTAM SOD 3.375 GM in D5W MINI-BAG PLUS 50 ML IV ONE (03:00)
[2019-03-15] MEDS: ACETAMINOPHEN TAB 650MG DOSE (2X325MG) PO PRN ×2 (07:54→12:46)
[2019-03-15] MEDS ORDERED: SIME180C PO (12:30)
--- NOTE | 2019-03-15 19:38 | IPN ---
DATE: 03/14/2019 HISTORY: The patient is now approximately 10 hours postop from a laparoscopic appendectomy for acute appendicitis. She is approximately 16 weeks . The patient has had no problems since surgery. She has been drinking liquids well and had some solid food this morning. She has had no nausea or vomiting. She has been voiding without difficulty. VITAL SIGNS: Show that she has been afebrile since surgery. Her pulse is in the 50s to low 70s. Blood pressure is normal. Intake and output shows that she has had an excellent urine output since surgery. PHYSICAL EXAMINATION: The patient is alert and oriented. Heart exam shows a regular rhythm. The abdomen is flat and soft. She has active bowel sounds. Her dressings are dry. IMPRESSION: The patient is doing very well now just 10 hours postop from her laparoscopic appendectomy. PLAN: The patient will be discharged home. I will not provide her with a prescription for any narcotics. She was encouraged to use [id number] medications as necessary and I think she will do fine with these. I advised her to avoid any strenuous physical activity for 2 weeks and this will likely require her to be off work for the next 2 weeks. She can shower 24 hours after the surgery. She should follow up in my office once in about 10 days or call sooner for any problems. MAHESH
--- NOTE | 2019-03-18 08:03 | RO ---
DATE OF PROCEDURE: 03/15/2019 PREOPERATIVE DIAGNOSES: 1. Acute appendicitis. 2. Intrauterine . POSTOPERATIVE DIAGNOSES: 1. Acute appendicitis. 2. Intrauterine . PROCEDURE PERFORMED: Laparoscopic appendectomy. SURGEON: Dr. Jiang LAY OUT HELPER: Dr. Malik. ANESTHESIA: General. 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 She had some persistent nausea but no vomiting. She was found to have some tenderness in the right lower quadrant. Her white blood cell count was mildly elevated with an increase her neutrophils. An ultrasound failed to identify the appendix and an abdominal MRI showed a somewhat dilated appendix. There was some free fluid in the pelvis. The findings were felt to be consistent with appendicitis. She is now for laparoscopic appendectomy. Because of her intrauterine at approximately 16 weeks, Dr. Malik is going to assist on the procedure. OPERATIVE PROCEDURE: The patient was brought to the operating room and placed on the table in a supine position. She was placed under general endotracheal anesthesia. The patient's abdomen was prepped and draped in a sterile fashion. 0.25% Marcaine was infiltrated at each of the trocar sites. A short midline incision was made approximately 5-6 cm above the umbilicus. This was deepened through the subcutaneous tissues to the fascia. The fascia was opened in the midline and stay sutures of 2-0 Vicryl were placed. The peritoneum was then opened bluntly and a Obi cannula was inserted. The abdomen was insufflated with carbon dioxide gas. The laparoscope was placed. The liver and gallbladder appeared normal. Visualized stomach was somewhat air-filled but normal. Portions of the a small large bowel were seen and appeared normal. The uterus was prominent in the low midline and somewhat widened consistent with her known history of a bicornuate uterus that had been treated surgically previously. Two 5 mm ports were placed in the left midabdomen. Graspers were inserted. The right ovary was identified just lateral to the superior aspect of the uterus. Just above this was the cecum. The cecum was grasped and rotated medially and the base of the appendix was noted. The appendix was seen to extend inferiorly lateral to the uterus and posterior to the ovary. As the appendix was delivered it was clear that the distal half of approximately of the appendix was edematous and inflamed. The appendix was elevated. The filmy attachments of the mesoappendix laterally were divided with the hook cautery. The vascular structures of the mesoappendix were identified and then clipped with hemoclips and divided. The remaining avascular portions of the mesoappendix were divided with the hook cautery. The base of the appendix was clearly identified. The junction of the appendix with the cecum was stapled with a linear cutter 45 endoscopic stapler with a blue load. The appendix was placed in an Endopouch. The right lateral abdomen was irrigated and inspected and there was no bleeding and the staple line appeared excellent. The patient was placed into a flat position from her slight Trendelenburg that had been created to better expose the appendix. The abdomen was deflated and the trocars were removed. The appendix was recovered through the upper midline incision. This was sent for permanent pathology. The fascia was closed with interrupted simple sutures of 2-0 Vicryl. Some additional local anesthesia was infiltrated around the midline incision. The skin incisions were all closed with buried 4-0 Vicryl and Steri-Strips. Light dressings were applied. The patient tolerated the procedure well without apparent complication. The patient was awakened in the operating room, extubated and moved to the recovery room in stable condition.
== END 2019-03-15 13:17 | disposition home or self-care (01) ==
LOC: M ED 14:53 → M SDC 14:54 → M MSPAV 03-15 03:44 → M SDC 03-15 13:17
PROVIDERS: ATTEND Surgery
DX: K35.80 Unspecified acute appendicitis (principal); O99.612 Diseases of the digestive system complicating pregnancy, second trimester; O99.512 Diseases of the respiratory system complicating pregnancy, second trimester; J45.909 Unspecified asthma, uncomplicated; O99.412 Diseases of the circulatory system complicating pregnancy, second trimester; R00.1 Bradycardia, unspecified; O99.012 Anemia complicating pregnancy, second trimester; Z3A.14 14 weeks gestation of pregnancy
CPT/HCPCS: 36415; 44970; 74181; 76815; 80048; 80076; 81001; 83690; 84702; 85025; 88304; 93976; 96361; 96365; 96366; 99284; J0131; J1100; J1885; J2405; J2543; J3010

== ENCOUNTER → 2019-06-19 | Outpatient (REF) | payer OTHER ==
[~2019-06-19] MED LIST changes: +FERR32TA PO; +PREN1TAB15 PO; +SIME180C PO
[2019-06-19 13:44] LABS: HEMATOCRIT 36.4 % (36.0-47.0); HEMOGLOBIN 11.4 g/dl (12.0-15.5); MEAN CORPUSCULAR HEMOGLOBIN 31.7 pg (27.0-33.0); MEAN CORPUSCULAR HGB CONC 31.3 g/dl (32.0-36.5); MEAN CORPUSCULAR VOLUME 101.1 fl (80.0-96.0); PLATELET COUNT, AUTOMATED 157 10^3/uL (150-450); WHITE BLOOD COUNT 8.6 10^3/uL (4.0-10.0)
== END ==
LOC: M PLALAB 09:23
PROVIDERS: ATTEND Advanced Practice Midwife
DX: Z36.89 Encounter for other specified antenatal screening (principal); Z3A.26 26 weeks gestation of pregnancy

== ENCOUNTER → 2019-06-19 | Outpatient (CLI) | payer OTHER ==
--- NOTE | 2019-06-19 12:39 | REP ---
OBSTETRIC SONOGRAPHY: HISTORY: Supervision of . Bicornuate uterus. Second trimester study. FINDINGS: Scanning through the gravid uterus demonstrates a viable single intrauterine gestation in variable lie. motion is observed and heart rate is recorded at 136 beats per minute. A posterior fundal grade 1 placenta is seen without evidence of previa or abruption. Amniotic fluid is subjectively normal. Closed cervical length is measured transabdominally at 4.2 cm. No extrauterine abnormality is observed. There has been appropriate interval growth. No anomaly is seen. The following anatomic structures are identified and felt to be unremarkable: cranium, choroid plexus, cavum, cerebellum and posterior fossa, nuchal fold face and profile, four-chamber heart with left and right ventricular outflow tract views, diaphragm, left-sided stomach, three-vessel cord, abdominal wall cord insertion, kidneys and bladder, spine. Biometry Chart: BPD 7.3 cm = 29 weeks 2 days HC 27.6 cm = 30 weeks 1 day AC 26.0 cm = 30 weeks 1 day FL 5.7 cm = 29 weeks 6 days HL 5.1 cm = 29 weeks 6 days HC/AC ratio normal 1.06. Cephalic index normal 0.73 Estimated weight 1493 grams, 3 pounds 4 ounces, 80th percentile for 28 weeks 3 days. DIANE normal 17.4 cm. IMPRESSION: Viable single intrauterine gestation at 29 weeks 4 days by today's composite sonographic criteria for expected gestational age estimate based on prior sonography is 28 weeks 3 days. ELAINE by prior sonography September 08, 2019.
== END ==
LOC: M WHC 08:38
PROVIDERS: ATTEND Nurse Practitioner Women's Health
DX: Q51.3 Bicornate uterus (principal); O34.02 Maternal care for unspecified congenital malformation of uterus, second trimester; Z3A.29 29 weeks gestation of pregnancy

== ENCOUNTER → 2019-07-22 | Outpatient (CLI) | payer OTHER ==
--- NOTE | 2019-07-23 04:28 | REP ---
Clinical: Growth evaluation. Comparison: 06/19/2019 . Findings: Examination demonstrates a single live intrauterine in breech presentation. motion is identified by technologist. Placenta is noted posterior and grade I I without evidence for placenta previa or abruption. Amniotic fluid volume is normal. Cervix measures 3.3 cm in length and appears closed. No evidence for nuchal cord. Gestational age by LMP 33 weeks 1 day with ELAINE 09/08/2019 . Gestational age by current measurements 34 weeks 1 day with ELAINE 09/01/2019 . FHR equals 147 beats per minute. Estimated weight 2580 grams ( 84th percentile). Amniotic fluid index: 18.9 cm (8.3 - 24.5) Impression: Single live intrauterine in breech presentation demonstrating appropriate interval growth.
== END ==
LOC: M WHC 09:22
PROVIDERS: ATTEND Advanced Practice Midwife
DX: O34.03 Maternal care for unspecified congenital malformation of uterus, third trimester (principal)

== ENCOUNTER → 2019-08-13 | Outpatient (REF) | payer OTHER ==
[~2019-08-13] MED LIST changes: +IBUP-1022 PO; +SIME80CH5 PO; -SIME80TA PO
== END ==
LOC: M SFHCWAGY 17:55
PROVIDERS: ATTEND Advanced Practice Midwife
DX: O34.219 Maternal care for unspecified type scar from previous cesarean delivery (principal)

== ENCOUNTER → 2019-08-19 | Outpatient (CLI) | payer OTHER ==
[~2019-08-19] MED LIST changes: -IBUP-1022 PO; -SIME80CH5 PO; +SIME80TA PO
--- NOTE | 2019-08-20 02:27 | REP ---
Clinical: Growth evaluation. Comparison: 07/22/2019 . Findings: Examination demonstrates a single live intrauterine in breech presentation. motion is identified by technologist. Placenta is noted posterior and grade I I I without evidence for placenta previa or abruption. Amniotic fluid volume is normal. Cervix measures 3.7 cm in length and appears closed. No evidence for nuchal cord. Gestational age by LMP 37 weeks 1 day with ELAINE 09/08/2019 . Gestational age by current measurements 38 weeks 3 days with ELAINE 08/30/2019 . Amniotic fluid index: 21.1 cm (7.5 - 24.3) FHR equals 144 beats per minute. Estimated weight by current biometrical measurements 3783 grams ( 94th percentile). Impression: Single live advanced gestation in breech presentation. Relatively appropriate interval growth noted. Amniotic fluid volume is upper limits normal.
== END ==
LOC: M WHC 11:15
PROVIDERS: ATTEND Advanced Practice Midwife
DX: O34.219 Maternal care for unspecified type scar from previous cesarean delivery (principal)

== ENCOUNTER → 2019-08-30 | Outpatient (CLI) | payer OTHER ==
[~2019-08-30] MED LIST changes: +IBUP-1022 PO
== END ==
LOC: M LABSMTC 12:13
PROVIDERS: ATTEND Anesthesiology
DX: Z01.818 Encounter for other preprocedural examination (principal); Z11.59 Encounter for screening for other viral diseases
CPT/HCPCS: C9803; U0003

== ENCOUNTER 2019-09-02 05:54 | Inpatient (IN) | payer OTHER ==
[~2019-09-02] VITALS: Ht 172.7 cm; Wt 95.2 kg
[2019-09-02] VITALS (8 sets, daily range): BP systolic 109–141; BP diastolic 55–73
[~2019-09-02 05:54] MED LIST changes: -IBUP-1022 PO
[2019-09-02] MEDS ORDERED: BICITRA 30ML SOLN UDC PO ONE (06:30)
[2019-09-02] MEDS ORDERED: LR 800 ML IV ONE (06:30)
[2019-09-02] MEDS ORDERED: ceFAZolin SOD 2 GM in IV 1 EA IV ONE (06:30)
[2019-09-02 06:44] LABS: HEMATOCRIT 35.5 % (36.0-47.0); HEMOGLOBIN 11.5 g/dl (12.0-15.5); MEAN CORPUSCULAR HEMOGLOBIN 31.7 pg (27.0-33.0); MEAN CORPUSCULAR HGB CONC 32.4 g/dl (32.0-36.5); MEAN CORPUSCULAR VOLUME 97.8 fl (80.0-96.0); PLATELET COUNT, AUTOMATED 124 10^3/uL (150-450); RED BLOOD COUNT 3.63 10^6/uL (4.00-5.40); WHITE BLOOD COUNT 8.9 10^3/uL (4.0-10.0)
[2019-09-02] MEDS ORDERED: OXYC1TAB23 PO (07:10)
[2019-09-02] MEDS ORDERED: IBUP-1022 PO (07:11)
[2019-09-02] MEDS ORDERED: LR 1,000 ML IV SCH ×2 (07:30→09:00)
[2019-09-02] MEDS ORDERED: MORPHINE PRES-FREE INJ 10 MG/10 ML VIAL (J2274) As Ordered ONE (08:10)
[2019-09-02] MEDS ORDERED: LIDOCAINE 2% W/EPIN INJ 20ML **PRES FREE As Ordered ONE (08:10)
[2019-09-02] MEDS ORDERED: LIDOCAINE PRES-FREE 2% 10ML AMP As Ordered ONE (08:10)
[2019-09-02] MEDS ORDERED: ONDANSETRON 4MG/2ML VIAL As Ordered ONE (08:10)
[2019-09-02] MEDS ORDERED: OXYTOCIN INJ 10 UNITS/ML VIAL (J2590) As Ordered ONE (08:10)
[2019-09-02] MEDS ORDERED: ACETAMINOPHEN 1000MG 100ML IV BTL (OFIRMEV) (J0131 PER 10MG) As Ordered ONE (08:32)
[2019-09-02] MEDS ORDERED: ONDANSETRON 4MG/2ML VIAL IV PRN ×2 (08:35→09:00)
[2019-09-02] MEDS ORDERED: NALBUPHINE HCL 10 MG/ML AMP (J2300) IV PRN (08:35)
[2019-09-02] MEDS ORDERED: NALOXONE INJ 0.4MG/1ML VIAL (J2310 PER 1MG) IV PRN ×2 (08:35)
[2019-09-02] MEDS ORDERED: METOCLOPRAMIDE INJ 10MG/2ML VIAL (J2765 PER 1) IV PRN (08:35)
[2019-09-02] MEDS ORDERED: diphenhydrAMINE 50MG/ML VIAL (J1200) IV PRN (08:35)
[2019-09-02] MEDS ORDERED: OXYTOCIN DRIP 30 UNITS in IV 1 EA IV SCH (08:47)
[2019-09-02] MEDS ORDERED: ONDANSETRON 4 MG TAB PO PRN (09:00)
[2019-09-02] MEDS: PRENATAL VITAMINS CHEWABLE TABLET PO SCH (09:00)
[2019-09-02] MEDS ORDERED: fentaNYL 100 MCG/2 ML INJECTION (J3010) IV PRN (09:00)
[2019-09-02] MEDS ORDERED: DOCUSATE SODIUM 100 MG CAP PO PRN (09:00)
[2019-09-02] MEDS ORDERED: RHOGAM 300 MCG (1500 IU) INJ (J2790) IM SCH (09:00)
[2019-09-02] MEDS ORDERED: KETOROLAC 30 MG/ML 1ML VIAL IV PRN (09:00)
[2019-09-02] MEDS ORDERED: MEASLES,MUMPS,RUBELLA VACCINE INJ (MMR-II) (90707) SC SCH (09:00)
[2019-09-02] MEDS ORDERED: PERCOCET 5MG/325MG TAB PO PRN (09:00)
[2019-09-02] MEDS ORDERED: OXYTOCIN 30 UNITS IN 0.9% NaCl 500ML IV BAG (J2590) As Ordered ONE (09:30)
[2019-09-02] MEDS ORDERED: KETOROLAC 30 MG/ML 1ML VIAL As Ordered ONE (10:18)
[2019-09-02] MEDS: KETOROLAC 30 MG/ML 1ML VIAL IV SCH ×3 (10:23→23:04)
[2019-09-02] MEDS: LR 1,000 ML IV SCH ×2 (13:41→23:04)
[2019-09-03 02:00] VITALS: BP 113/57
[2019-09-03 05:38] VITALS: BP 118/71
[2019-09-03] MEDS: IBUPROFEN 800 MG TAB PO SCH ×3 (05:51→21:34)
[2019-09-03 07:00] LABS: HEMATOCRIT 27.2 % (36.0-47.0); MEAN CORPUSCULAR HEMOGLOBIN 32.6 pg (27.0-33.0); MEAN CORPUSCULAR HGB CONC 33.1 g/dl (32.0-36.5); MEAN CORPUSCULAR VOLUME 98.6 fl (80.0-96.0); PLATELET COUNT, AUTOMATED 103 10^3/uL (150-450); RED BLOOD COUNT 2.76 10^6/uL (4.00-5.40); WHITE BLOOD COUNT 8.7 10^3/uL (4.0-10.0)
[2019-09-03] MEDS: PRENATAL VITAMINS CHEWABLE TABLET PO SCH (07:53)
[2019-09-03] MEDS: SIMETHICONE 80 MG CHEW TAB PO PRN ×2 (08:14→15:12)
[2019-09-03 10:00] VITALS: BP 111/58
[2019-09-03] MEDS: PERCOCET 5MG/325MG TAB PO PRN ×2 (12:19→18:33)
[2019-09-03 14:00] VITALS: BP 107/57
[2019-09-03 18:05] VITALS: BP 115/60
[2019-09-03 22:00] VITALS: BP 114/59
[2019-09-04] MEDS: PERCOCET 5MG/325MG TAB PO PRN ×2 (00:39→09:06)
[2019-09-04] MEDS: SIMETHICONE 80 MG CHEW TAB PO PRN ×2 (02:26→11:17)
[2019-09-04] MEDS: IBUPROFEN 800 MG TAB PO SCH (05:27)
[2019-09-04 06:00] VITALS: BP 124/66
[2019-09-04] MEDS: PRENATAL VITAMINS CHEWABLE TABLET PO SCH (07:53)
--- NOTE | 2019-09-07 12:53 | RO ---
DATE OF PROCEDURE: 09/02/2019 PREPROCEDURE DIAGNOSES: 39 and 1/7 week gestation. Prior section times two. POSTPROCEDURE DIAGNOSES: 39 and 1/7 week gestation. Prior section times two. PROCEDURE: Repeat low transverse section and bilateral tubal ligation. SURGEON: Dr. Kendrick Malik. COMPOSITION PROFESSOR: Dr. Porfirio Bass DO ANESTHESIA: Epidural. ESTIMATED BLOOD LOSS: 700 mL. URINE OUTPUT: 200 mL. IV FLUIDS: 800 ML. Lactated Ringers. FINDINGS: 8-ccbjr-91-ounce 3960 gram male . Apgars 9 and 10. Transverse position. Bicornuate uterus. Normal ovaries and fallopian tubes. DESCRIPTION OF PROCEDURE: The patient taken to the operating room where epidural anesthesia was induced. She was prepped and draped in a sterile fashion in the supine position. A Lainez catheter was placed. A Pfannenstiel incision was made with a scalpel and carried through to the fascia. The fascia was nicked and extended. The fascia was dissected off the rectus muscles. Peritoneal cavity was entered. A bladder flap was created. A low vertical incision was made in the uterus. This was extended manually. Membranes ruptured with clear fluid noted. The infant was rotated to the vertex position and delivered in the vertex. The cord was cut and was handed off to the awaiting nurses. The placenta was expressed. The uterus was closed with 0 Vicryl in a running locked fashion. A second imbricating layer of 0 Vicryl was placed. Attention was turned to the fallopian tubes. The fallopian tube were crossed clamped with a Lorena clamp to the fimbriated end. Each tube was excised and secured with a free tie of #3-0 chromic. A Mobius retractor was replaced. The uterus was closed with #2-0 Vicryl in a running fashion. The fascia was closed with 0 Vicryl in a running fashion. The deep, layer was irrigated. The skin was closed with #4-0 Monocryl subcuticular sutures. Sponge, instrument and needle counts were correct. Porfirio Bass DO assisted throughout the procedure from beginning to end. He helped create each layer and deliver the fetus. He was indispensable for the successful performance of the procedure.
--- NOTE | 2019-09-08 15:58 | DSES ---
DATE OF ADMISSION: 09/02/2019 DATE OF DISCHARGE: 09/04/2019 A 29-year-old (G) 3, para (P) 2 female at 39 and 1/7 weeks gestation who presents for repeat section. She has a history of two prior sections. HOSPITAL COURSE: The patient was admitted on 09/02/2019. She underwent repeat section and bilateral tubal ligation for a viable male . There were no complications. Her postoperative hemoglobin was 9.0 g/dL. She had adequate return of bladder and bowel function. She was deemed stable for discharge on postoperative day number two. ADMISSION DIAGNOSES: 1. , term. 2. Prior (C) section times two. DISCHARGE DIAGNOSIS: Delivered. PROCEDURE: Repeat low transverse section, bilateral tubal ligation. DISPOSITION: The patient will followup with Dr. Malik in two weeks. Instructions reviewed.
== END 2019-09-04 11:25 | disposition home or self-care (01) | DRG 785 ==
LOC: M LDI 05:54 → M OBS 10:49
PROVIDERS: ADMIT Specialist; ATTEND Specialist
PROC: 10D00Z1 Extraction of Products of Conception, Low, Open Approach (ICD-10-PCS; principal; 2019-09-02 07:30)
PROC: 0UB70ZZ Excision of Bilateral Fallopian Tubes, Open Approach (ICD-10-PCS; principal; 2019-09-02 07:30)
DX: O34.211 Maternal care for low transverse scar from previous cesarean delivery (principal); Z3A.39 39 weeks gestation of pregnancy; Z37.0 Single live birth; Z30.2 Encounter for sterilization

== ENCOUNTER → 2020-04-20 | Outpatient (REF) | payer SELFPAY ==
[~2020-04-20] MED LIST changes: +IBUP-1022 PO; +SIME80CH5 PO; -SIME80TA PO
== END ==
LOC: M LABSMTC 09:40 → EDSTATUS 14:05 → M LABSMTC 14:10
PROVIDERS: ATTEND Pediatrics
DX: Z20.822 Contact with and (suspected) exposure to COVID-19 (principal)

== ENCOUNTER → 2021-11-03 | Outpatient (REF) | payer OTHER ==
[~2021-11-03] MED LIST changes: +BLAC1CAP2 PO; +CBD OIL PO; +CETI10CH PO; +PROAAER10 INH; -SIME180C PO; +SIME180C25 PO; +VITMTA PO
== END ==
LOC: M SFHCWAGY 10:16
PROVIDERS: ATTEND Obstetrics & Gynecology
DX: Z12.4 Encounter for screening for malignant neoplasm of cervix (principal); R87.810 Cervical high risk human papillomavirus (HPV) DNA test positive; Q51.3 Bicornate uterus
CPT/HCPCS: 87624; G0123

== ENCOUNTER → 2021-11-07 | Outpatient (CLI) | payer OTHER, SELFPAY | LOC: M LABSMTC 11:18 | PROVIDERS: ATTEND Anesthesiology | DX: Z01.812 Encounter for preprocedural laboratory examination (principal); Z20.822 Contact with and (suspected) exposure to COVID-19 ==

== ENCOUNTER 2021-11-11 13:39 | Day surgery (SDC) | payer OTHER ==
[~2021-11-11] VITALS: Ht 172.7 cm; Wt 74.5 kg
[2021-11-11] MEDS ORDERED: LR 1,000 ML IV SCH (13:50)
[2021-11-11 14:43] LABS: HEMATOCRIT 30.1 % (36.0-47.0); HEMOGLOBIN 8.7 g/dl (12.0-15.5); MEAN CORPUSCULAR HEMOGLOBIN 21.8 pg (27.0-33.0); MEAN CORPUSCULAR HGB CONC 28.9 g/dl (32.0-36.5); MEAN CORPUSCULAR VOLUME 75.4 fl (80.0-96.0); PLATELET COUNT, AUTOMATED 273 10^3/uL (150-450); RED BLOOD COUNT 3.99 10^6/uL (4.00-5.40); WHITE BLOOD COUNT 6.8 10^3/uL (4.0-10.0)
[2021-11-11 15:27] LABS: HCG, SERUM QUALITATIVE NEGATIVE (NEGATIVE)
[2021-11-11] MEDS ORDERED: BUPIVACAINE LIPOSOME/PF 1.3% 20ML VIAL (13.3MG/ML)(EXPAREL) As Ordered ONE (15:52)
[2021-11-11] MEDS ORDERED: LIDOCAINE 1% SDV 30ML VIAL As Ordered ONE (15:52)
[2021-11-11] MEDS ORDERED: LEVONORGESTREL 52MG (MIRENA) IUD As Ordered ONE (16:19)
[2021-11-11] MEDS ORDERED: MIDAZOLAM INJ 2MG/2ML VIAL (J2250 PER 1MG) As Ordered ONE (16:34)
[2021-11-11] MEDS ORDERED: fentaNYL 100 MCG/2 ML INJECTION As Ordered ONE (16:34)
[2021-11-11] MEDS ORDERED: dexameTHASONE 4 MG/ML 1ML VIAL (J1100 PER 1MG) As Ordered ONE (16:34)
[2021-11-11] MEDS ORDERED: propofoL 200 MG/20 ML VIAL As Ordered ONE ×2 (16:34→16:40)
[2021-11-11 17:54] VITALS: BP 132/69
== END 2021-11-11 18:02 | disposition home or self-care (01) ==
LOC: M SDC 13:39
PROVIDERS: ATTEND Obstetrics & Gynecology
DX: N93.9 Abnormal uterine and vaginal bleeding, unspecified (principal); Q51.3 Bicornate uterus; I10 Essential (primary) hypertension; F90.9 Attention-deficit hyperactivity disorder, unspecified type; Z88.5 Allergy status to narcotic agent; J45.909 Unspecified asthma, uncomplicated; Z79.51 Long term (current) use of inhaled steroids; Z91.030 Bee allergy status
CPT/HCPCS: 36415; 58100; 58300; 76856; 84703; 85027; 86850; 86900; 86901; 88305; 93005; J1100; J2250; J3010; J7298

== ENCOUNTER → 2022-11-16 | Outpatient (REF) | payer OTHER | LOC: M PLALAB 10:18 | PROVIDERS: ATTEND Advanced Practice Midwife | DX: Z12.4 Encounter for screening for malignant neoplasm of cervix (principal) | CPT/HCPCS: 87624; G0123 ==

== ENCOUNTER → 2023-08-15 | Outpatient (REF) | payer OTHER ==
[2023-08-15 18:34] LABS: HEMATOCRIT 45.8 % (36.0-47.0); HEMOGLOBIN 14.5 g/dl (12.0-15.5); MEAN CORPUSCULAR HEMOGLOBIN 32.5 pg (27.0-33.0); MEAN CORPUSCULAR HGB CONC 31.7 g/dl (32.0-36.5); MEAN CORPUSCULAR VOLUME 102.7 fl (80.0-96.0); PLATELET COUNT, AUTOMATED 255 10^3/uL (150-450); RED BLOOD COUNT 4.46 10^6/uL (4.00-5.40); WHITE BLOOD COUNT 7.2 10^3/uL (4.0-10.0)
[2023-08-15 19:12] LABS: ALBUMIN 4.4 G/DL (3.2-5.2); ALKALINE PHOSPHATASE 64 U/L (46-116); ALT/SGPT 23 U/L (7.0-40); AST/SGOT 28 U/L (<34); BILIRUBIN,TOTAL 0.9 MG/DL (0.3-1.2); BLOOD UREA NITROGEN 14 MG/DL (9-23); CALCIUM LEVEL 9.8 MG/DL (8.5-10.1); CARBON DIOXIDE LEVEL 28 MMOL/L (20-31); CHLORIDE LEVEL 105 MMOL/L (98-107); CHOLESTEROL LEVEL 168 MG/DL (<200); CHOLESTEROL RISK RATIO 2.74 (<5); CREATININE FOR GFR 0.72 MG/DL (0.55-1.30); GLOMERULAR FILTRATION RATE > 60.0 (>60); GLUCOSE, FASTING 82 MG/DL (60-100); HDL CHOLESTEROL 61.2 MG/DL (>40); LDL CHOLESTEROL 93.8 MG/DL (<100); MAGNESIUM LEVEL 1.9 MG/DL (1.8-2.4); NON-HDL-C 106.8 MG/DL; POTASSIUM SERUM 4.2 MMOL/L (3.5-5.1); SODIUM LEVEL 141 MMOL/L (136-145); TOTAL PROTEIN 7.6 G/DL (5.7-8.2); TRIGLYCERIDES LEVEL 65 MG/DL (<150)
[2023-08-15 19:13] LABS: THYROID STIMULATING HORMONE 1.383 uIU/ML (0.55-4.78)
[2023-08-15 19:14] LABS: FREE T4 0.97 NG/DL (0.89-1.76)
== END ==
LOC: M SFHCADAM 11:17
PROVIDERS: ATTEND Family Medicine
DX: G43.909 Migraine, unspecified, not intractable, without status migrainosus (principal); F98.8 Other specified behavioral and emotional disorders with onset usually occurring in childhood and adolescence

== ENCOUNTER → 2024-01-26 | Outpatient (REF) | payer OTHER ==
[~2024-01-26] MED LIST changes: -SIME180C25 PO; +SIME1CAP4 PO
[2024-01-26 18:45] LABS: BASO # 0.1 10^3/uL (0.0-0.2); BASO % 0.9 % (0.0-1.0); EOS # 0.3 10^3/uL (0.0-0.5); EOS % 3.3 % (0.0-3.0); HEMATOCRIT 43.6 % (36.0-47.0); LYMPH # 1.7 10^3/uL (1.5-5.0); MEAN CORPUSCULAR HEMOGLOBIN 33.1 pg (27.0-33.0); MEAN CORPUSCULAR HGB CONC 32.1 g/dl (32.0-36.5); MEAN CORPUSCULAR VOLUME 103.1 fl (80.0-96.0); MONO # 0.4 10^3/uL (0.0-0.8); MONO % 4.9 % (2.0-8.0); NEUTROPHILS # 5.3 10^3/uL (1.5-8.5); NEUTROPHILS % 68.4 % (36.0-66.0); PLATELET COUNT, AUTOMATED 250 10^3/uL (150-450); RED BLOOD COUNT 4.23 10^6/uL (4.00-5.40); WHITE BLOOD COUNT 7.8 10^3/uL (4.0-10.0)
[2024-01-26 18:54] LABS: ERYTHROCYTE SEDIMENTATION RATE 5 mm/hr (0-20)
[2024-01-26 19:08] LABS: ALKALINE PHOSPHATASE 67 U/L (35-104); ALT/SGPT 18 U/L (7.0-40); AST/SGOT 10 U/L (<34); BILIRUBIN,TOTAL 0.7 MG/DL (0.3-1.2); BLOOD UREA NITROGEN 13 MG/DL (9-23); CALCIUM LEVEL 9.5 MG/DL (8.5-10.1); CARBON DIOXIDE LEVEL 29 MMOL/L (20-31); CHLORIDE LEVEL 105 MMOL/L (98-107); CREATININE FOR GFR 0.64 MG/DL (0.55-1.30); GLOMERULAR FILTRATION RATE > 60.0 (>60); GLUCOSE, FASTING 82 MG/DL (60-100); POTASSIUM SERUM 4.2 MMOL/L (3.5-5.1); SODIUM LEVEL 140 MMOL/L (136-145); TOTAL PROTEIN 7.4 G/DL (5.7-8.2)
[2024-01-26 19:10] LABS: FREE T4 1.09 NG/DL (0.89-1.76); THYROID STIMULATING HORMONE 1.027 uIU/ML (0.55-4.78)
== END ==
LOC: M SFHCADAM 11:16
PROVIDERS: ATTEND Physician Assistant
DX: G50.0 Trigeminal neuralgia (principal)

== ENCOUNTER → 2025-02-12 | Outpatient (REF) | payer OTHER ==
[~2025-02-12] MED LIST changes: -IBUP-1022 PO
[2025-02-14 14:28] LABS: HPV APTIMA Not Detected (Not Detected)
== END ==
LOC: M SFHCWAGY 15:18
PROVIDERS: ATTEND Advanced Practice Midwife
DX: Z12.4 Encounter for screening for malignant neoplasm of cervix (principal)
CPT/HCPCS: 87624; G0123